=== PATIENT | male | born 1940 | race Caucasian/White ===

== ENCOUNTER 2024-07-11 12:44 | Inpatient (IN) ==
[2024-07-11 14:55] LABS: Platelet Count 249 10^3/uL (150-450); White Blood Count 7.2 10^3/uL (3.6-10.2)
[2024-07-11 15:00] LABS: ABS Lymphocytes 0.9 10^3/uL (1.0-4.8); ABS Monocytes 0.5 10^3/uL (0.0-1.1); ABS Neutrophils 5.6 10^3/uL (1.5-7.6); ABS Nucleated RBC 0.01 10^3/ul; Eosinophil % 0.1 %; Hematocrit 40.5 % (38-53); Hemoglobin 13.8 g/dL (13.2-16.3); Lymphocyte % 12.8 %; Mean Corpuscular Hemoglobin 31.8 pg (27-33); Mean Corpuscular Hgb Conc 34.2 g/dL (31-36); Mean Corpuscular Volume 92.9 fL (80-97); Mean Platelet Volume 8.3 fL (7.5-11.2); Nucleated Red Blood Cells % 0.1 %/100WBC (0.0-0.8); Red Blood Count 4.36 10^6/uL (4.06-5.63); Red Cell Distribution Width 14.3 % (12-17)
[2024-07-11] MEDS: Morphine 4 MG/ML VIAL (1 ml) IV ONE ×3 (15:30→18:46)
[2024-07-11] MEDS: Ondansetron 4 mg VIAL 2 MG/ML 2 ml VIAL IV ONE ×2 (15:30→18:46)
[2024-07-11] MEDS: Lactated Ringers 1000 ml BAG 1,000 ML IV ONE (15:30)
[2024-07-11 15:44] LABS: ALT 22 U/L (7-52); AST -36 U/L (13-39); Albumin 4.7 g/dL (3.2-5.2); Albumin/Globulin Ratio 1.2 (1-3); Alkaline Phosphatase 52 U/L (35-149); Anion Gap 14 mmol/L (2-16); Blood Urea Nitrogen 19 mg/dL (6-24); C Reactive Protein < 1.00 mg/L (<8.01); CO2 Carbon Dioxide 21 mmol/L (22-32); Calcium 9.9 mg/dL (8.6-10.3); Chloride 101 mmol/L (101-111); Creatinine, Serum 0.94 mg/dL (0.67-1.17); Globulin 3.8 g/dL (2-4); Glucose 149 mg/dL (70-100); Lipase 20 U/L (11.0-82.0); Sodium 136 mmol/L (135-145); Total Bilirubin 0.7 mg/dL (0.2-1.0); Total Protein 8.5 g/dL (6.4-8.9); eGFR CKD-EPI 81.4 (>60)
[2024-07-11 15:50] LABS: Urine Appearance Clear; Urine Bilirubin Negative (Negative); Urine Blood Negative (Negative); Urine Color Yellow; Urine Glucose Negative (Negative); Urine Ketones 1+ (Negative); Urine Nitrite Negative (Negative); Urine Protein Trace (Negative); Urine Specific Gravity 1.024 (1.002-1.030); Urine Urobilinogen Negative (Negative)
[2024-07-11] MEDS ORDERED: HYDROmorphone 0.5 MG/0.5 ML SYRINGE IV SLOW PU PRN (19:20)
[2024-07-11] MEDS: Piperacillin/Tazobac 3.375 BAG 3.375 GM/100 ML BAG IV ONE (19:29)
[2024-07-11] MEDS ORDERED: Rocuronium 50 mg VIAL 10 mg/ml 5 ml VIAL (50 mg) ONE ×2 (19:51→21:47)
[2024-07-11] MEDS ORDERED: Ondansetron 4 mg VIAL 2 MG/ML 2 ml VIAL ONE (19:52)
[2024-07-11] MEDS ORDERED: Phenylephrine IV 10 MG/ML 1 ml VIAL ONE (19:52)
[2024-07-11] MEDS ORDERED: Propofol 10 MG/ML 20 ML BTL ONE ×2 (19:52→21:52)
[2024-07-11] MEDS ORDERED: fentaNYL 100 mcg/2 ml 50 MCG/ML VIAL ONE ×3 (19:52→21:53)
[2024-07-11] MEDS ORDERED: Lidocaine 2% PF 5 ML VIAL ONE (19:52)
[2024-07-11] MEDS ORDERED: Glycopyrrolate IV 0.2 MG/ML 1 ML VIAL ONE (21:24)
[2024-07-11] MEDS ORDERED: ROPIVACAINE 5 MG/ML 30 ML BTL (0.5%) ONE (22:02)
[2024-07-11] MEDS ORDERED: Metoclopramide 5 MG/ML VIAL (10 mg) IV PRN (22:15)
[2024-07-11] MEDS ORDERED: Naloxone 0.4 mg VIAL 0.4 mg/ml 1 ml VIAL IV PRN (22:15)
[2024-07-11] MEDS ORDERED: Ondansetron 4 mg VIAL 2 MG/ML 2 ml VIAL IV PRN (22:15)
[2024-07-11] MEDS ORDERED: fentaNYL 100 mcg/2 ml 50 MCG/ML VIAL IV PRN (22:15)
[2024-07-11] MEDS ORDERED: NS 0.45% 1000 ml BAG 1,000 ML IV SCH (23:00)
[2024-07-12] MEDS: Lactated Ringers 1000 ml BAG 1,000 ML IV SCH ×2 (02:56→06:40)
[2024-07-12 06:00] LABS: ABS Lymphocytes 0.5 10^3/uL (1.0-4.8); ABS Monocytes 0.5 10^3/uL (0.0-1.1); ABS Neutrophils 9.2 10^3/uL (1.5-7.6); Hematocrit 37.9 % (38-53); Hemoglobin 12.9 g/dL (13.2-16.3); Lymphocyte % 4.8 %; Mean Corpuscular Hgb Conc 34.1 g/dL (31-36); Mean Corpuscular Volume 93.9 fL (80-97); Mean Platelet Volume 7.9 fL (7.5-11.2); Platelet Count 181 10^3/uL (150-450); Red Blood Count 4.04 10^6/uL (4.06-5.63); Red Cell Distribution Width 14.2 % (12-17); White Blood Count 10.2 10^3/uL (3.6-10.2)
[2024-07-12] MEDS: Scopolamine 1 mg/72hr PATCH TRANSDERM ONE (06:40)
[2024-07-12] MEDS: Buffered Lidocaine 1% SYRIN 1 ml INTRADERM ONE (06:40)
[2024-07-12] MEDS: Acetaminophen IV 1 GM/100ML 1,000 MG/100 ML BAG IV ONE (06:40)
[2024-07-12 07:23] LABS: Calcium 8.4 mg/dL (8.6-10.3); Creatinine, Serum 0.87 mg/dL (0.67-1.17); Potassium 4.4 mmol/L (3.5-5.0); eGFR CKD-EPI 86.7 (>60)
[2024-07-12] MEDS: Ondansetron 4 mg VIAL 2 MG/ML 2 ml VIAL IV PRN (20:44)
[2024-07-13] MEDS: NS 0.9% 1000 ml BAG 1,000 ML IV ONE (08:53)
[2024-07-13] MEDS: Prochlorperazine 5 mg/ml 2 ml VIAL (10 mg) ONE (08:53)
[2024-07-13] MEDS: Lactated Ringers 1000 ml BAG 1,000 ML IV SCH (12:16)
[2024-07-13] MEDS: Benzocaine/Menthol LOZ MT PRN (19:54)
[2024-07-13] MEDS: Acetaminophen IV 1 GM/100ML 1,000 MG/100 ML BAG IV PRN (20:18)
[2024-07-14 05:54] LABS: ABS Lymphocytes 0.7 10^3/uL (1.0-4.8); ABS Monocytes 1.4 10^3/uL (0.0-1.1); ABS Neutrophils 5.7 10^3/uL (1.5-7.6); ABS Nucleated RBC 0.02 10^3/ul; Eosinophil % 0.5 %; Hematocrit 36.8 % (38-53); Hemoglobin 12.7 g/dL (13.2-16.3); Lymphocyte % 8.7 %; Mean Corpuscular Hemoglobin 31.9 pg (27-33); Mean Corpuscular Hgb Conc 34.4 g/dL (31-36); Mean Corpuscular Volume 92.6 fL (80-97); Mean Platelet Volume 8.8 fL (7.5-11.2); Nucleated Red Blood Cells % 0.2 %/100WBC (0.0-0.8); Platelet Count 186 10^3/uL (150-450); Red Blood Count 3.98 10^6/uL (4.06-5.63); Red Cell Distribution Width 14.3 % (12-17); White Blood Count 7.8 10^3/uL (3.6-10.2)
[2024-07-14 06:01] LABS: Calcium 8.5 mg/dL (8.6-10.3); Creatinine, Serum 0.92 mg/dL (0.67-1.17); Magnesium 1.9 mg/dL (1.9-2.7); Potassium 3.2 mmol/L (3.5-5.0); eGFR CKD-EPI 83.6 (>60)
[2024-07-14] MEDS: KCL 20 MEQ/100 ML IVPREMIX 20 MEQ/100 ML BAG IV SCH (07:18)
[2024-07-14] MEDS: D5W 1/2 NS KCl 20 meq 1000 ml 1,000 ML IV SCH (07:18)
[2024-07-15 06:46] LABS: Calcium 8.4 mg/dL (8.6-10.3); Creatinine, Serum 0.94 mg/dL (0.67-1.17); Potassium 3.6 mmol/L (3.5-5.0); eGFR CKD-EPI 81.4 (>60)
[2024-07-15] MEDS: NS 0.9% 500 ml BAG 500 ML IV ONE (12:20)
[2024-07-16 06:51] LABS: Hematocrit 37.9 % (38-53); Mean Corpuscular Hemoglobin 31.7 pg (27-33); Mean Corpuscular Hgb Conc 34.3 g/dL (31-36); Mean Corpuscular Volume 92.4 fL (80-97); Mean Platelet Volume 7.6 fL (7.5-11.2); Platelet Count 263 10^3/uL (150-450); Red Cell Distribution Width 14.2 % (12-17); White Blood Count 5.8 10^3/uL (3.6-10.2)
[2024-07-16 07:09] LABS: Calcium 8.6 mg/dL (8.6-10.3); Creatinine, Serum 0.99 mg/dL (0.67-1.17); Potassium 3.6 mmol/L (3.5-5.0); eGFR CKD-EPI 76.5 (>60)
[2024-07-16 08:37] LABS: ABS Lymphocytes 0.9 10^3/uL (1.0-4.8); ABS Monocytes 1.7 10^3/uL (0.0-1.1); ABS Neutrophils 3.1 10^3/uL (1.5-7.6); Eosinophil % 0.9 %; Lymphocyte % 16.2 %; RBC Morphology Normal (Normal)
[2024-07-16 09:49] LABS: Albumin 3.7 g/dL (3.2-5.2); Albumin/Globulin Ratio 1.1 (1-3); Globulin 3.3 g/dL (2-4); Magnesium 1.9 mg/dL (1.9-2.7); Phosphorus 3.6 mg/dL (2.5-5.0); Total Bilirubin 0.8 mg/dL (0.2-1.0)
[2024-07-16] MEDS: Potassium Chloride IV 20 MEQ in Lactated Ringers 1000 ml BAG 1,000 ML IVPB SCH (10:45)
[2024-07-16] MEDS: TPN 24 HR with Sodium Chloride CONC. 4 MEQ/ML 100 MEQ, Potassium Chloride TPN 50 MEQ, C... CENT\\PICC SCH (17:31)
[2024-07-17 07:30] LABS: Albumin 3.7 g/dL (3.2-5.2); Albumin/Globulin Ratio 1.1 (1-3); Calcium 8.6 mg/dL (8.6-10.3); Creatinine, Serum 1.01 mg/dL (0.67-1.17); Globulin 3.3 g/dL (2-4); Phosphorus 3.7 mg/dL (2.5-5.0); Potassium 3.5 mmol/L (3.5-5.0); Total Bilirubin 0.9 mg/dL (0.2-1.0); eGFR CKD-EPI 74.7 (>60)
[2024-07-17] MEDS: Potassium Chloride IV 20 MEQ in Lactated Ringers 1000 ml BAG 1,000 ML IVPB SCH (09:34)
[2024-07-17] MEDS: Enoxaparin 40 MG/0.4 ML SYR SUBCUT SCH (09:37)
[2024-07-17] MEDS: TPN 24 HR with Dextrose 50% Water 500 ML, Amino Acid Infusion 10% 850 ML, Sterile Water... CENT\\PICC SCH (17:01)
[2024-07-18 08:39] LABS: Albumin 3.6 g/dL (3.2-5.2); Albumin/Globulin Ratio 1.1 (1-3); Calcium 8.5 mg/dL (8.6-10.3); Creatinine, Serum 0.83 mg/dL (0.67-1.17); Globulin 3.4 g/dL (2-4); Phosphorus 3.7 mg/dL (2.5-5.0); Potassium 3.7 mmol/L (3.5-5.0); Total Bilirubin 0.6 mg/dL (0.2-1.0); eGFR CKD-EPI 87.9 (>60)
[2024-07-19 05:58] LABS: Calcium 9.3 mg/dL (8.6-10.3); Creatinine, Serum 0.8 mg/dL (0.67-1.17); Potassium 3.5 mmol/L (3.5-5.0); eGFR CKD-EPI 88.9 (>60)
[2024-07-20] MEDS: Prochlorperazine 5 mg/ml 2 ml VIAL (10 mg) IV PRN (03:21)
[2024-07-21 11:22] LABS: Calcium 8.9 mg/dL (8.6-10.3); Creatinine, Serum 1.07 mg/dL (0.67-1.17); Potassium 4.2 mmol/L (3.5-5.0); eGFR CKD-EPI 69.7 (>60)
[2024-07-22 14:29] LABS: Hematocrit 39.4 % (38-53); Hemoglobin 13.1 g/dL (13.2-16.3); Mean Corpuscular Hemoglobin 31.1 pg (27-33); Mean Corpuscular Hgb Conc 33.3 g/dL (31-36); Mean Corpuscular Volume 93.2 fL (80-97); Mean Platelet Volume 8.2 fL (7.5-11.2); Platelet Count 394 10^3/uL (150-450); Red Blood Count 4.22 10^6/uL (4.06-5.63); Red Cell Distribution Width 14.3 % (12-17); White Blood Count 27.3 10^3/uL (3.6-10.2)
[2024-07-22] MEDS ORDERED: Phenol 1.4% Throat Spray BTL MT PRN (15:07)
[2024-07-22 15:22] LABS: Calcium 9.2 mg/dL (8.6-10.3); Creatinine, Serum 1.02 mg/dL (0.67-1.17); Potassium 4.1 mmol/L (3.5-5.0); eGFR CKD-EPI 73.8 (>60)
[2024-07-22 15:24] LABS: ABS Basophils 0.1 10^3/uL (0.0-0.1); ABS Lymphocytes 1.6 10^3/uL (1.0-4.8); ABS Monocytes 1.2 10^3/uL (0.0-1.1); ABS Neutrophils 24.3 10^3/uL (1.5-7.6); Eosinophil % 0.1 %; Lymphocyte % 5.9 %; RBC Morphology Normal (Normal); Toxic Granulation 1+
[2024-07-22] MEDS: Benzocaine/Butamben/Tetracain (CETACAINE - SINGLE USE) 5 gm TOPICAL ONE (16:27)
[2024-07-22] MEDS ORDERED: Naloxone 0.4 mg VIAL 0.4 mg/ml 1 ml VIAL IV PRN (17:08)
[2024-07-22] MEDS ORDERED: HYDROmorphone 0.5 MG/0.5 ML SYRINGE IV SLOW PU PRN (17:11)
[2024-07-22] MEDS ORDERED: ceFOXitin 2 GM IVPREMIX 2 GM/50 ML BAG ONE (17:14)
[2024-07-22] MEDS ORDERED: Midazolam 2 mg/2 ml VIAL 1 mg/ml 2 ml VIAL (2 mg) ONE (17:25)
[2024-07-22] MEDS ORDERED: fentaNYL 100 mcg/2 ml 50 MCG/ML VIAL ONE ×2 (17:26→18:32)
[2024-07-22] MEDS ORDERED: Propofol 10 MG/ML 20 ML BTL ONE (17:26)
[2024-07-22] MEDS: Buffered Lidocaine 1% SYRIN 1 ml INTRADERM ONE (17:41)
[2024-07-22] MEDS ORDERED: Rocuronium 50 mg VIAL 10 mg/ml 5 ml VIAL (50 mg) ONE (17:46)
[2024-07-22] MEDS ORDERED: Ondansetron 4 mg VIAL 2 MG/ML 2 ml VIAL ONE (18:15)
[2024-07-22] MEDS ORDERED: Bupivacaine 0.25% EPI 200,000 30 ML SDV ONE (18:34)
[2024-07-22] MEDS ORDERED: Dexamethasone IV 4 MG/ML VIAL 1 ml VIAL ONE (18:37)
[2024-07-22] MEDS ORDERED: Lidocaine 2% PF 5 ML VIAL ONE (18:37)
[2024-07-22] MEDS ORDERED: Succinylcholine 200 mg VIAL 20 mg/ml 10 ml VIAL (200 mg) ONE (18:38)
[2024-07-22] MEDS: Acetaminophen IV 1 GM/100ML 1,000 MG/100 ML BAG IV ONE (21:21)
[2024-07-22] MEDS: Lactated Ringers 1000 ml BAG 1,000 ML IV SCH (23:14)
[2024-07-22] MEDS: HYDROmorphone 0.5 MG/0.5 ML SYRINGE IV SLOW PU PRN (23:54)
[2024-07-23 09:33] LABS: Albumin 3.3 g/dL (3.2-5.2); Albumin/Globulin Ratio 0.9 (1-3); Calcium 8.4 mg/dL (8.6-10.3); Creatinine, Serum 0.89 mg/dL (0.67-1.17); Globulin 3.8 g/dL (2-4); Phosphorus 3.2 mg/dL (2.5-5.0); Potassium 4.3 mmol/L (3.5-5.0); Total Bilirubin 0.4 mg/dL (0.2-1.0); Total Protein 7.1 g/dL (6.4-8.9); eGFR CKD-EPI 86.1 (>60)
[2024-07-23] MEDS: Sodium Phosphate ADULT ENEMA 133 ML BTL PR SCH (11:23)
[2024-07-23] MEDS: Methylnaltrexone SQ (NF) 12 MG/0.6 ML VIAL SUBCUT SCH (12:54)
[2024-07-24 05:55] LABS: Hematocrit 34.4 % (38-53); Hemoglobin 11.3 g/dL (13.2-16.3); Mean Corpuscular Hemoglobin 30.9 pg (27-33); Mean Corpuscular Volume 93.6 fL (80-97); Mean Platelet Volume 8.2 fL (7.5-11.2); Platelet Count 348 10^3/uL (150-450); Red Blood Count 3.67 10^6/uL (4.06-5.63); Red Cell Distribution Width 14.4 % (12-17); White Blood Count 10.9 10^3/uL (3.6-10.2)
[2024-07-24 06:31] LABS: Calcium 8.2 mg/dL (8.6-10.3); Creatinine, Serum 0.8 mg/dL (0.67-1.17); Potassium 4.2 mmol/L (3.5-5.0); eGFR CKD-EPI 88.9 (>60)
[2024-07-24 08:12] LABS: ABS Basophils 0.1 10^3/uL (0.0-0.1); ABS Lymphocytes 2.1 10^3/uL (1.0-4.8); ABS Monocytes 1.2 10^3/uL (0.0-1.1); ABS Neutrophils 7.5 10^3/uL (1.5-7.6); ABS Nucleated RBC 0.01 10^3/ul; Eosinophil % 0.4 %; Nucleated Red Blood Cells % 0.1 %/100WBC (0.0-0.8)
[2024-07-24] MEDS: TPN 24 HR with Dextrose 50% Water 500 ML, Amino Acid Infusion 10% 1,000 ML, Lipid Emuls... CENT\\PICC SCH (16:47)
[2024-07-25 06:31] LABS: ABS Eosinophils 0.2 10^3/uL (0.0-0.5); ABS Lymphocytes 1.9 10^3/uL (1.0-4.8); ABS Neutrophils 6.2 10^3/uL (1.5-7.6); Eosinophil % 1.8 %; Hematocrit 35.5 % (38-53); Hemoglobin 12.1 g/dL (13.2-16.3); Lymphocyte % 20.2 %; Mean Corpuscular Hemoglobin 31.4 pg (27-33); Mean Corpuscular Volume 92.3 fL (80-97); Mean Platelet Volume 8.1 fL (7.5-11.2); Platelet Count 433 10^3/uL (150-450); Red Blood Count 3.85 10^6/uL (4.06-5.63); Red Cell Distribution Width 14.3 % (12-17); White Blood Count 9.3 10^3/uL (3.6-10.2)
[2024-07-26 13:36] LABS: Albumin 3.4 g/dL (3.2-5.2); Calcium 8.3 mg/dL (8.6-10.3); Creatinine, Serum 0.7 mg/dL (0.67-1.17); Globulin 3.5 g/dL (2-4); Magnesium 1.9 mg/dL (1.9-2.7); Phosphorus 3.7 mg/dL (2.5-5.0); Potassium 4.6 mmol/L (3.5-5.0); Total Bilirubin 0.3 mg/dL (0.2-1.0); Total Protein 6.9 g/dL (6.4-8.9); eGFR CKD-EPI 92.6 (>60)
[2024-07-28 14:20] VITALS: BP 113/62
== END 2024-07-28 15:00 | disposition home or self-care (01) | DRG 336 ==
LOC: ED 12:44 → EDHOLD 19:20 → SSU 20:07
PROVIDERS: ADMIT Surgery; ATTEND Surgery